=== PATIENT | female | born 1970 | race Caucasian/White ===

== ENCOUNTER 2016-12-15 09:33 | Day surgery (SDC) | payer MEDICARE, OTHER ==
--- NOTE | ~2016-12-15 | EGD ---
EGD REPORT [facility] [address] [address] NAME: SHELTON MONTOYA : [birth year] STATUS : REG [facility]#: [id number] AGE: 46 ADM/REG DATE : 12/15/16 MR#: [id number] REPORT SERV DATE: 12/15/16 DICTATED BY: SAM JUAREZ DATE: 12/15/16 REPORT STATUS : Draft TRANSCRIBED BY: [facility] DATE: 12/15/16 [facility] Patient Name: Shelton Montoya Date of : 1970 Attending MD: SAM JUAREZ MD Procedure Date No Time: 12/15/2016 Procedure: Colonoscopy Indications: Surveillance: History of adenomatous polyps, inadequate prep on last exam (<1yr), FH of Colon Cancer - 1st degree relative Referring MD: Taiwo Whittaker MD Medicines: Propofol per Anesthesia Complications: No immediate complications. Procedure: Pre-Anesthesia Assessment: - ASA Grade Assessment: III - A patient with severe systemic disease. After I obtained informed consent, the scope was passed under direct vision. Throughout the procedure, the patient's blood pressure, pulse, and oxygen saturations were monitored continuously. The CF [id number] was introduced through the anus and advanced to the terminal ileum. The colonoscopy was performed without difficulty. The patient tolerated the procedure well. The quality of the bowel preparation was good. Findings: The terminal ileum appeared normal. The colon (entire examined portion) appeared normal. Multiple small and large-mouthed diverticula were found in the recto-sigmoid colon, in the sigmoid colon and in the descending colon. A sessile polyp was found in the sigmoid colon. The polyp was 3 mm in size. The polyp was removed with a cold biopsy forceps. Resection and retrieval were complete. Non-bleeding internal hemorrhoids were found during retroflexion and were mild, medium-sized and Grade I (internal hemorrhoids that do not prolapse). Impression: - The examined portion of the ileum was normal. - The entire examined colon is normal. - Diverticulosis in the recto-sigmoid colon, in the sigmoid colon and in the descending colon. - One 3 mm polyp in the sigmoid colon. Resected and retrieved. - Non-bleeding internal hemorrhoids. EGD REPORT [address] [address] NAME: SHELTON MONTOYA : [birth year] STATUS : REG [facility] [place] PAT#: [id number] AGE: 46 ADM/REG DATE : 12/15/16 MR#: [id number] REPORT SERV DATE: 12/15/16 DICTATED BY: SAM JUAREZ DATE: 12/15/16 REPORT STATUS : Draft TRANSCRIBED BY: [employer] DATE: 12/15/16 Recommendation: - Patient has a contact number available for emergencies. The signs and symptoms of potential delayed complications were discussed with the patient. Return to normal activities tomorrow. Written discharge instructions were provided to the patient. - Return to previous diet. - Continue present medications. - Await pathology results. - Repeat colonoscopy in 3 - 5 years for surveillance based on pathology results. - Return to my office as previously scheduled. - Discharge patient to home. Procedure Code(s): --- Professional --- 71527, Colonoscopy, flexible, proximal to splenic flexure; with biopsy, single or multiple Diagnosis Code(s): --- Professional --- K64.0, First degree hemorrhoids K57.30, Diverticulosis of large intestine without perforation or abscess without bleeding D12.5, Benign neoplasm of sigmoid colon Z86.010, Personal history of colonic polyps Z80.0, Family history of malignant neoplasm of digestive organs CPT copyright 2013 [employer]. All rights reserved. The codes documented in this report are preliminary and upon fox farmer review may be revised to meet current compliance requirements. Sam Juarez MD SAM JUAREZ MD 12/15/2016 1:20 PM This report has been signed electronically. Number of Addenda: 0 Note Initiated On: 12/15/2016 12:27 PM Scope Withdrawal Time 0 hours 15 minutes 16 seconds [id number] [place] [address]
[~2016-12-15 09:33] MED LIST: AMLODIPINE; AMOXIL500 MG PO; BENTYL10 PO; BRINT20T PO; BYDUREON2 MG SQ; CLONAZEPAM; DIAMOX; DIAMSEQ PO; DOXYCYCLINE; FOLIC ACID; FOLIC PO; FUROSEMIDE; GABAPENTIN; HALF81 PO; KAPIDEX60 MG PO; KLONO5 PO; KLOR-CON M2020 MEQ PO; L20 PO; LIPITOR; LIPITOR10 PO; LIPITOR20 PO; LIPITOR40 PO; LISINOPRIL40 MG PO; LOFIB160 PO; LOP25 PO; METOPROLOL; NASONEX NAS; NEUR300 PO; NOR50 PO; NORCO1 TA1 PO; NORV5 PO; OMNICEF300 PO; POTASSIUM; PROTONIX PO; QNASL8.7 GM NAS; RANITIDINE300 MG PO; SINGULAIR1 PO; SPIRO25 PO; TENEX1 PO; TOPAMAX100 PO; TOPIRAMATE; TRINTELLIX20 MG PO; ULTRAM50 PO; VIB100 PO; VIBRA-TAB 100100 MG PO; VICODINTAB PO; VITAMIN D31000 UNIT PO; ZETIA PO; ZOFRAN4 PO; ZYRTEC ALLGY10 MG PO
== END 2016-12-15 23:59 | disposition home or self-care (01) ==
LOC: DMU 09:33
PROVIDERS: Internal Medicine Gastroenterology
PROC: 0DBN8ZZ Excision of Sigmoid Colon, Via Natural or Artificial Opening Endoscopic (ICD-10-PCS; principal; 2016-12-15 10:00)
DX: D12.5 Benign neoplasm of sigmoid colon (principal); Z86.010 Personal history of colon polyps; Z80.0 Family history of malignant neoplasm of digestive organs; K57.30 Diverticulosis of large intestine without perforation or abscess without bleeding; K64.0 First degree hemorrhoids; K58.9 Irritable bowel syndrome, unspecified; K21.9 Gastro-esophageal reflux disease without esophagitis; I10 Essential (primary) hypertension; G40.409 Other generalized epilepsy and epileptic syndromes, not intractable, without status epilepticus; E11.9 Type 2 diabetes mellitus without complications; E66.01 Morbid (severe) obesity due to excess calories; Z68.39 Body mass index [BMI] 39.0-39.9, adult; Z88.5 Allergy status to narcotic agent; Z79.82 Long term (current) use of aspirin; Z79.899 Other long term (current) drug therapy
CPT/HCPCS: 82962; 88305; J2250